=== PATIENT | female | born 1970 | race Caucasian/White ===

== ENCOUNTER 2019-11-13 07:45 | Outpatient (CLI) | payer OTHER ==
[2019-11-13 18:18] LABS: Hemoglobin 13.4 g/dL (12.0-16.0); Mean Corpuscular Volume 87.5 fL (78.0-98.0); Mean Platelet Volume 7.2 fL (7.4-10.4); Platelet Count 322 thou/uL (130-400); RBC Distribution Width 12.5 % (11.5-14.5); White Blood Cell (WBC) Count 8.3 thou/uL (4.8-10.8)
[2019-11-13 18:45] LABS: Anion Gap 14 mmol/L (10-20); BUN (Urea Nitrogen) 15 mg/dL (9.8-20.1); Calc. Creatinine Clearance 0 mL/min (70-130); Calcium 9.6 mg/dL (7.8-10.44); Carbon Dioxide 25 mmol/L (22-29); Chloride 103 mmol/L (98-107); Estimated GFR-MDRD 81; Glucose 89 mg/dL (70-105); Potassium 4.6 mmol/L (3.5-5.1); Sodium 137 mmol/L (136-145)
[2019-11-14 14:16] LABS: SARS-CoV-2 MS2 Positive; SARS-CoV-2 N Gene Negative; SARS-CoV-2 S Gene Negative; SARS-CoV-2 by NAA Not Detected (NotDetected); SARS-CoV-2 orf1ab Negative
--- NOTE | 2019-11-14 15:46 | EKG ---
Test Reason : Blood Pressure : / mmHG Vent. Rate : 090 BPM Atrial Rate : 090 BPM P-R Int : 146 ms QRS Dur : 088 ms QT Int : 360 ms P-R-T Axes : 061 040 014 degrees QTc Int : 440 ms Normal sinus rhythm RSR' or QR pattern in V1 suggests right ventricular conduction delay Borderline ECG Confirmed by ROSA ISELA GONZALES ([id number]) on 11/14/2019 3:46:32 PM Referred By: LIZETH Confirmed By:ROSA ISELA GONZALES
== END 2019-11-13 07:46 | disposition home or self-care (01) ==
LOC: LABBT 07:45
PROVIDERS: ATTEND Neurological Surgery
DX: Z01.818 Encounter for other preprocedural examination (principal); Z11.59 Encounter for screening for other viral diseases; M43.16 Spondylolisthesis, lumbar region
CPT/HCPCS: 80048; 85027; 87635; 93005; 93010; U0003

== ENCOUNTER 2019-11-16 07:28 | Outpatient (CLI) | payer OTHER ==
[2019-11-17 14:23] LABS: SARS-CoV-2 MS2 Positive; SARS-CoV-2 N Gene Negative; SARS-CoV-2 S Gene Negative; SARS-CoV-2 by NAA Not Detected (NotDetected); SARS-CoV-2 orf1ab Negative
== END 2019-11-16 07:29 | disposition home or self-care (01) ==
LOC: LABBT 07:28
PROVIDERS: ATTEND Neurological Surgery
DX: Z01.812 Encounter for preprocedural laboratory examination (principal); Z11.59 Encounter for screening for other viral diseases; M43.16 Spondylolisthesis, lumbar region
CPT/HCPCS: 87635; U0003

== ENCOUNTER 2019-12-06 10:18 | Outpatient (CLI) | payer OTHER ==
--- NOTE | 2019-12-06 10:51 | RAD ---
Lumbar spine 2 views: 12/06/2019 COMPARISON: None HISTORY: Evaluate back surgery, spondylolisthesis of the lumbar region FINDINGS: Vertically oriented posterior cutaneous kelly are present. There is a right-sided L4 and L5 pedicle screw with a vertically oriented interlocking xavier. T12 verte bral body appears to contain hypoplastic ribs. Intervertebral disc device present at L4-5 anteriorly. There is disc space narrowing and degenerative endplate change with anterior osteophyte f ormation at L4-5. Multilevel lower lumbar spine facet hypertrophy. No acute osseous abnormality. IMPRESSION: Postoperative and degenerative changes of the lumbar spine.
== END 2019-12-06 10:19 | disposition home or self-care (01) ==
LOC: TBSIIMAG 10:18
PROVIDERS: ATTEND Neurological Surgery
DX: M43.16 Spondylolisthesis, lumbar region (principal); M47.816 Spondylosis without myelopathy or radiculopathy, lumbar region; Z98.890 Other specified postprocedural states
CPT/HCPCS: 72100

== ENCOUNTER 2020-01-30 13:35 | Outpatient (CLI) | payer OTHER ==
--- NOTE | 2020-01-30 14:05 | RAD ---
Exam: Lumbar spine 2 views HISTORY: Spondylolisthesis. FINDINGS: 5 lumbar type vertebra. Lumbar spine vertebral body height is maintained. No fracture. Unil ateral right-sided transpedicular screw at L4 and L5, without perihardware lucency. L4-L5 disc prosthesis. Mild degenerative change at L5-S1. IMPRESSION: Uncomplicated L4-L5 fusion.
== END 2020-01-30 13:36 | disposition home or self-care (01) ==
LOC: TBSIIMAG 13:35
PROVIDERS: ATTEND Neurological Surgery
DX: M43.16 Spondylolisthesis, lumbar region (principal); Z98.1 Arthrodesis status
CPT/HCPCS: 72100